=== PATIENT | female | born 1985 | race Asian ===

== ENCOUNTER 2017-10-20 20:31 | Emergency (ER) | END 2017-10-20 21:43 | disposition home or self-care (01) ==

== ENCOUNTER 2018-05-28 00:34 | Emergency (ER) | payer BC, OTHER ==
[~2018-05-28] VITALS: Ht 157.5 cm; Wt 52.3 kg
[2018-05-28 00:36] VITALS: Ht 157.5 cm; Wt 52.3 kg
[2018-05-28] MEDS ORDERED: ONDANSETRON (ODT) 4 MG TAB ODT STA (01:27)
[2018-05-28 01:43] VITALS: BP 128/68; PULSE 94; RESP 18
--- NOTE | 2018-05-28 06:31 | ERD ---
ER Documentation Chief Complaint Chief Complaint CODE GREEN. NV X 3 DAYS. HPI 33-year-old otherwise healthy woman complains of anxiety and tachypnea causing spasms at the wrist and feet, patient admits to feeling anxious after having lunch and going back to work. He states symptoms lasted for about 15 minutes and then resolved but she was brought down to the ED for evaluation. Patient states she has had similar symptoms in the past, she has some nausea but denies vomiting, no fevers or chills, no abdominal pain, no dysuria, no chest pain or shortness of breath. Patient denies . ROS All systems reviewed and are negative except as per history of present illness. Allergies Allergies: Coded Allergies: No Known Allergy (Unverified , 10/20/17) PMhx/Soc Medical and Surgical Hx: pt denies Medical Hx, pt denies Surgical Hx Hx Alcohol Use: No Hx Substance Use: No Hx Tobacco Use: Yes Smoking Status: Current every day smoker FmHx Family History: No diabetes Physical Exam Vitals Vital Signs Date Temp Pulse Resp B/P (MAP) Pulse Ox O2 O2 Flow FiO2 Time Delivery Rate 05/28/18 98.6 94 18 128/68 99 Room Air 01:43 (88) 05/28/18 98.6 102 16 133/68 100 00:36 (89) Physical Exam GENERAL: Well-developed, well-nourished, well-hydrated, in no apparent distress, looks nontoxic in appearance HEENT: Moist mucous membranes, pink conjunctiva, no cervical spine tenderness or step-off deformities, no goiter, no jaundice or icterus, extraocular movements intact without pain. No submandibular induration, and no pharyngeal erythema NEURO: Alert and oriented 3, cranial nerves II through XII intact bilaterally, pupils equal round reactive to light, no focal deficits or facial asymmetry, sen sation intact distally Strength 5/5 in upper and lower extremities bilaterally CARDIAC: Regular rate and rhythm, no murmurs rubs or gallops LUNGS: Clear bilaterally no wheezing crackles or stridor ABDOMEN: Soft nontender, no guarding, no rigidity, no rebound, no psoas sign no obturator sign. Normoactive bowel sounds SKIN: Warm and dry to touch, no abrasions, contusions, or hematomas, no lacerations, no ecchymosis, no target lesions, and without ulcers EXTREMITIES: No clubbing cyanosis or edema, calves are bilaterally symmetrical, no Homans sign, no popliteal cord sign. Distal pulses equal and bilateral PSYCH: Normal affect without agitation or irritability Results 24 hrs Current Medications Medications Dose Sig/Brayan Start Time Status Last (Trade) Ordered Route PRN Stop Time Admin Dose Reason Admin Ondansetron 4 mg ONCE STAT 05/28/18 DC 05/28/18 HCl (Zofran ODT 01:27 01:31 Odt) 05/28/18 01:28 Procedures/MDM Reassurance was provided, patient is no longer hyperventilating or anxious although she did have some residual nausea I treated her here with Zofran p.o. Patient feels much better at this time, and vital signs are normal, symptoms have improved. I did give strict instructions to return to the ED if symptoms continue or worsen, patient will otherwise follow-up with primary care physician. Patient understood instructions and agreed to plan. Disclaimer: Inadvertent spelling and grammatical errors are likely due to EHR/dictation software use and do not reflect on the overall quality of patient care. Also, please note that the electronic time recorded on this note does not necessarily reflect the actual time of the patient encounter. Departure Diagnosis: Primary Impression: Nausea Additional Impression: Hyperventilation syndrome Condition: Good Patient Instructions: Hyperventilation Syndrome CAROLINE ELLIOTT MD May 28, 2018 06:31
== END 2018-05-28 01:45 | disposition home or self-care (01) ==
LOC: E/R 00:34
DX: F45.8 Other somatoform disorders (principal); R11.0 Nausea; F17.210 Nicotine dependence, cigarettes, uncomplicated
CPT/HCPCS: 99283